=== PATIENT | male | born 1985 | race Caucasian/White ===

== ENCOUNTER → 2021-01-25 | Outpatient (CLI) | payer OTHER ==
[~2021-01-25] MED LIST: PANT20TA6 PO
== END ==
LOC: M LABSMTC 09:09
PROVIDERS: ATTEND Anesthesiology
DX: Z01.812 Encounter for preprocedural laboratory examination (principal); Z20.822 Contact with and (suspected) exposure to COVID-19

== ENCOUNTER 2021-01-30 10:52 | Day surgery (SDC) | payer OTHER ==
[~2021-01-30] VITALS: Ht 175.3 cm; Wt 83.9 kg
[~2021-01-30 10:52] MED LIST changes: +LIDOCAINE 1% MDV 20ML VIAL SQ PRN; +LR 1,000 ML IV ONE
[2021-01-30] MEDS ORDERED: MIDAZOLAM INJ 2MG/2ML VIAL (J2250 PER 1MG) As Ordered ONE (11:43)
[2021-01-30] MEDS ORDERED: dexameTHASONE 4 MG/ML 1ML VIAL (J1100 PER 1MG) As Ordered ONE (11:44)
[2021-01-30] MEDS ORDERED: ROCURONIUM BROMIDE 50 MG/5 ML VIAL As Ordered ONE ×2 (11:44→14:21)
[2021-01-30] MEDS ORDERED: SUGAMMADEX SODIUM 500 MG/5 ML VIAL (BRIDION) As Ordered ONE (11:44)
[2021-01-30] MEDS ORDERED: fentaNYL 250 MCG/5 ML INJECTION (J3010) As Ordered ONE (11:44)
[2021-01-30] MEDS ORDERED: LIDOCAINE 2% 100MG/5ML SDV (FOR ANES.) As Ordered ONE (11:44)
[2021-01-30] MEDS ORDERED: propofoL 200 MG/20 ML VIAL As Ordered ONE (11:44)
[2021-01-30] MEDS ORDERED: ONDANSETRON 4MG/2ML VIAL As Ordered ONE (11:44)
[2021-01-30] MEDS ORDERED: KETOROLAC 60MG 2ML VIAL As Ordered ONE (11:44)
[2021-01-30] MEDS ORDERED: BUPIVACAINE HCL 0.25% 30ML VIAL As Ordered ONE (12:56)
[2021-01-30] MEDS ORDERED: ACETAMINOPHEN 1000MG 100ML IV BTL (OFIRMEV) (J0131 PER 10MG) As Ordered ONE (13:41)
[2021-01-30] MEDS ORDERED: LR 1,000 ML IV SCH (16:30)
[2021-01-30] MEDS ORDERED: ONDANSETRON 4MG/2ML VIAL IV PRN (16:30)
[2021-01-30] MEDS ORDERED: fentaNYL 100 MCG/2 ML INJECTION (J3010) IV PRN (16:30)
[2021-01-30] MEDS ORDERED: PERCOCET 5MG/325MG TAB PO PRN (16:30)
[2021-01-30 17:07] VITALS: BP 127/77
--- NOTE | 2021-01-31 08:05 | RO ---
OPERATIVE NOTE DATE OF OPERATION: 01/30/2021 PREOPERATIVE DIAGNOSIS: Left inguinal hernia. POSTOPERATIVE DIAGNOSIS: Complete indirect left inguinal hernia. PROCEDURE: Robotic-assisted laparoscopic left inguinal herniorrhaphy with mesh. The mesh utilized was [employer] ProGrip Reference Code [id number] and Lot #[id number]. SURGEON: YEHUDA MONSIVAIS MD DENTAL LABORATORY ASSISTANT: CANDY DUQUE, WEI/Candy's assistance was essential in managing the [employer] surgical robot. She assisted in placement of the trocars, change of instruments, passage of the sutures and mesh and then closed the incisions as well. ANESTHESIA: General. INDICATIONS FOR THE PROCEDURE: The patient is a 35-year-old man who had been seen almost two years ago with a small left inguinal hernia. Because of life circumstances and the COVID pandemic his surgery was delayed. He returned recently with a significantly larger left inguinal hernia and is now for robotic assisted repair. OPERATIVE PROCEDURE: The patient was brought to the Operating Room and placed on the table in the supine position. He was placed under general endotracheal anesthesia. The patient's abdomen, groins and genitalia were prepped and draped in a sterile fashion. 0.25% Marcaine was infiltrated at each of the trocar sites as needed. A short transverse supraumbilical midline incision was made and a Veress needle was inserted. After a positive hanging drop test, the abdomen was inflated with carbon dioxide gas. An 8 mm robotic port was placed over the scope and advanced to the abdominal wall without difficulty. Initial examination showed a definite indirect left inguinal hernia. On the right side there was an irregular piece of mesh which appeared to represent some sort of mesh plug presenting on the inner aspect of the abdomen at the right inguinal area. There was no sign of residual hernia. Two additional 8 mm ports were placed, one in the right upper quadrant and one in the left upper quadrant. The patient cart of the [employer] robot was brought into the position and the endoscope arm was docked to the middle port. The laparoscope was placed and targeting took place in the left side of the pelvis. Just prior to docking, the patient was tilted to 15 degrees of Trendelenburg position. After targeting in the pelvis, the other robotic arms were docked and a fenestrated bipolar and cauterizing scissors were inserted. I then moved to the control console to proceed with the operation. Inspection showed the findings as noted previously with a definite indirect hernia on the left. A transverse incision was made in the peritoneum beginning about 5 to 6 cm above the top edge of the hernia defect at the lateral border of the medial umbilical ligament and extending lateral. The inferior epigastric vessels were identified and carefully preserved. The incision was extended laterally and then inferiorly toward the anterior superior iliac spine. The preperitoneal flap was developed medially down to expose the pubic symphysis and the Cristiano's ligament. There was no sign of femoral hernia on the left. The lateral aspect of the flap was then developed. The patient had a moderately large but empty indirect hernia sac. I began to dissect this circumferentially, extending down along the inguinal canal. A large portion of the hernia sac was reduced but it extended further. Ultimately, I elected to transect the hernia sac and leave a portion distally. Care was taken to ensure hemostasis as the sac was transected and allowed to retract distally. The preperitoneal space was inspected for hemostasis and this was excellent. Because of the size of the opening of the hernia at the internal ring, I elected to close this partially using a running suture of 2-0 V-Loc. This was accomplished without difficulty. The mesh was then inserted into the abdomen and placed into the preperitoneal space. The mesh was unfolded and centered over the sutured defect of the indirect hernia. The mesh extended medially proximally to the pubic symphysis and extended inferiorly to cover the femoral canal. Laterally, it extended well beyond the area of the sutured hernia defect. The adherent side of the mesh was pressed into the overlying inguinal floor and it maintained its position well. I then began closing the peritoneal flap beginning laterally and extending medially with a running suture of 2-0 V-Loc. Once this was partially closed, I sutured the open end of the hernia sac with a running suture and pursestring of 3-0 Vicryl. This nicely closed the defect completely. The patient was then returned to a flat position and subsequently a 5 degree head up position to allow the bowel to fall up against the peritoneal flap and remove some air from the preperitoneal space around the mesh. The pressure within the abdomen had also been reduced to 10 mmHg. I completed the closure of the flap without difficulty. All needles were removed as well as a portion of the hernia sac which had been excised and this was sent for permanent pathology. The robotic instruments were withdrawn and the robot was undocked and the patient cart withdrawn. The abdomen was deflated and the trocars were removed. Candy Duque proceeded to close the incisions with buried sutures of 4-0 Vicryl and Steri-Strips. Light dressings were applied. The patient tolerated the procedure well without apparent complication. He was awakened in the Operating Room, extubated and moved to the Recovery Room in stable condition.
== END 2021-01-30 17:12 | disposition home or self-care (01) ==
LOC: M SDC 10:52
PROVIDERS: ATTEND Surgery
DX: K40.90 Unilateral inguinal hernia, without obstruction or gangrene, not specified as recurrent (principal); Z79.899 Other long term (current) drug therapy; F17.220 Nicotine dependence, chewing tobacco, uncomplicated
CPT/HCPCS: 49650; 88302; C1781; J0131; J1100; J1885; J2250; J2405; J3010; S2900